=== PATIENT | male | born 1990 | race Caucasian/White ===

== ENCOUNTER 2023-06-01 02:52 | Emergency (ER) | payer BC, SELFPAY ==
--- OUTSIDE RECORDS SUMMARY | 2023-06-01 02:55 | XMS REPORT | Continuity of Care Document ---
Author Name Unknown Address [address] [facility] [address] [id number] [facility] thconnect Address [address] [facility]. [address] [place] [address] Care Team Providers Care Drum Sealer Name Role Phone JENNIFER LARKIN Attending Clinician Unavailab WINSOME Zhao Attending Clinician Unavailable JUAN ALFONSO Attending Clinician Unavailable Payers Payer Name Policy Type Policy Number Effective Date Expirati on Date Source [facility] 2 [id number] 2023 00:00:00 Problems Condition Name Condition Details Condition Category Status Onset Date Resolution Date Last Treatment Date Treating Clinician Comments Source Acute pharyngiti s due to other specified organisms Acute pharyngiti s due to other specified organisms Disease Active 2022-06 00:00: 00 Faith Oleary l Hypertensi on Hypertensi on Disease Active 2022-06 00:00: 00 Faith Morelos Externjuan robbins Allergies, Adverse Reactions, Alerts Allergy Name Allergy Type Status Severity Reaction(s) Onset Date Inactive Date Treating Clinician Comments Source Cefpodox kailee Propensi ty to adverse reaction s Active Other 2022-06 00:00: 00 Night terrors Faith Morelos Externa itzel Social History Social Habit Start Date Stop Date Quantity Comments Source Sexual orientation Jorge Bañuelos - External History of tobacco use Cigarette Smoker Faith lockett - External History of Social function 2023-04-09 00:00:00 2023-04-09 00:00:00 Faith Bañuelos - External Education 2023-04-09 00:00:00 2023-04-09 00:00:00 16 Faith Pickardcathryn - External Alcohol Comment 2023-04-09 00:00:00 2023-04-09 00:00:00 rarely Faith Bañuelos - External Cigarettes smoked current (pack per day) - Reported 2023-04-09 00:00:00 2023-04-09 00:00:00 Faith Bañuelos - External Cigarette pack-years 2023-04-09 00:00:00 2023-04-09 00:00:00 Faith Bañuelos - External Tobacco use and exposure 2023-04-09 00:00:00 2023-04-09 00:00:00 Smokeless tobacco non-user Faith Bañuelos - External Alcohol intake 2023-04-09 00:00:00 2023-04-09 00:00:00 Current drinker of alcohol (finding) Faith Bañuelos - External Sex Ass[birth year] At 1990 00:00:00 1990 00[birth year]:00 Faith manjeet - External Smoking Status Start Date Stop Date Source Ex-smoker 2023-04-09 00:00:00 2023-04-09 00:00:00 Jorge mcgovern Edda - External Medications Ordered Medication Name Filled Medication Name Start Date Stop Date Current Medication? Ordering Clinician Indication Dosage Frequency Signature (SIG) Comments Components Source Azithromyci n 250 MG oral Tablet 2022-06 00:00: 00 04-15 04:59 :00 Yes [id number] Take 2 tablets by mouth on day 1 then 1 tablet by mouth daily for 4 days thereafter .. Faith Bañuelos - Externa l Lisinopril 5 MG oral Tablet 2022-06 00:00: 00 Yes 5mg 1 tablet (5 mg total) every 24 hours. Faith Bañuelos - Externa l Vital Signs Vital Name Observation Time Observation Value Comments S ource Systolic blood pressure 2023-04-09 21:37:00 120 mm[Hg] Faith Swanson ld - External Diastolic blood pressure 2023-04-09 21:37:00 80 mm[Hg] Faith Swanson ld - External Heart rate 2023-04-09 21:23:00 86 /min Flor Bañuelos - External Body temperature 2023-04-09 21:23:00 36.28 Lizbeth Faith Semanjeet - External Respiratory rate 2023-04-09 21:23:00 18 /min Faith Bañuelos - External Body height 2023-04-09 21:23:00 175.3 cm Becca barnes Sejajacathryn - External Body weight 2023-04-09 21:23:00 86.365 kg Becca barnes Sejajacathryn - External BMI 2023-04-09 21:23:00 28.12 kg/m2 Becca Bañuelos - External Oxygen saturation in Arterial blood by Pulse oximetry 2023-04-09 21:23:00 98 /min Faith Swanson ld - External Encounters Start Date/Time End Date/Time Encounter Type Admission Type Attending [facility] Care Department Encounter ID Source 2023-06-03 15:00:00 2023-06-03 15:00:00 Outpatient JENNIFER LARKIN [id number] Faith Bañuelos 2023-06-01 14:30:00 2023-06-01 14:30:00 Outpatient WINSOME FLORES [id number] Faith Bañuelos 2023-04-19 00:00:00 2023-04-19 00:00:00 Outpatient JUAN ALFONSO [id number] Faith Bañuelos 2023-04-09 16:45:00 2023-04-09 16:45:00 Outpatient JUAN ALFONSO [id number] Faith Bañuelos
[2023-06-01 03:34] LABS: Protime INR 1.12
[2023-06-01 03:36] LABS: Absolute Lymphocytes (CBC) 2.8 K/uL (0.7-4.9); Hematocrit 40.9 % (39.6-49.0); Lymphocytes % 30.2 % (15.3-44.8); MCV 89.3 fL (80-100); MPV 7.5 fL (7.6-11.3); Platelets 484 thou/uL (152-406); RBC Red Blood Cell Count 4.58 M/uL (4.33-5.43)
[2023-06-01] MEDS ORDERED: NA CHLORIDE 0.9% 2,000 ML ONE (03:38)
[2023-06-01] MEDS ORDERED: ONDANSETRON 4 MG/2 ML VIAL ONE (03:38)
[2023-06-01] MEDS ORDERED: LORazepam 2 MG/ML VIAL ONE (03:38)
[2023-06-01] MEDS ORDERED: ASPIRIN EC 81 MG TAB PO ONE (03:38)
[2023-06-01 03:55] LABS: Albumin 4.2 g/dL (3.4-5.0); Bilirubin Direct 0.1 mg/dL (0-0.2); Bilirubin Indirect, Calculated 0.5 mg/dL (0.2-0.8); Bilirubin Total 0.6 mg/dL (0.2-1.0); Potassium 4.3 mEq/L (3.5-5.1); Protein, Total 7.9 g/dL (6.4-8.2); Troponin High Sensitivity 4.3 pg/mL (<58.9)
[2023-06-01 04:23] LABS: Barbiturates NEGATIVE (NEGATIVE); Benzodiazepines NEGATIVE (NEGATIVE); Cocaine NEGATIVE (NEGATIVE); METHAMPHETAM POSITIVE (NEGATIVE); Methadone NEGATIVE (NEGATIVE); Opiates NEGATIVE (NEGATIVE); Phencyclidine NEGATIVE (NEGATIVE); THC Cannibis POSITIVE (NEGATIVE)
--- NOTE | 2023-06-01 06:26 | ER ---
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 I took 300mg of Adderall throughout the day. I was not trying to hurt myself, I just wanted it to wake up and feel good. Coronavirus screen: At this time, the client does not indicate any symptoms associated with coronavirus-19. Ebola Screen: No symptoms or risks identified at this time. Initial Sepsis Screen: Does the patient meet any 2 criteria? No. Patient's initial sepsis screen is negative. Does the patient have a suspected source of infection? No. Patient's initial sepsis screen is negative. Risk Assessment: Do you want to hurt yourself or someone else? Patient reports no desire to harm self or others. Onset of symptoms was June 01, 2023. Transition of care: patient was not received from another setting of care. 03:10 Method Of Arrival: Ambulatory jb4 03:10 Acuity: SANJIV 3 jb4 Triage Assessment: 06:36 Pain: Also complains of no other associated symptoms. tm6 Historical: - Allergies: 03:13 No Known Allergies; jb4 - Home Meds: 03:13 Lisinopril Oral [Active]; Propranolol Oral [Active]; jb4 - PMHx: 03:13 HTN; jb4 - PSHx: 03:13 None; jb4 - Immunization history:: Adult Immunizations up to date. - Social history:: Smoking status: Reported history of juuling and/or vaping. Patient uses street drugs, Adderall. - Family history:: not pertinent. Screenin:25 [facility] ED Fall Risk Assessment (Adult) History of falling in the last 3 months, tm6 including since admission No falls in past 3 months (0 pts). Abuse screen: Denies threats or abuse. Denies injuries from another. Nutritional screening: No deficits noted. Tuberculosis screening: No symptoms or risk factors identified. Assessment: 03:25 General: Appears in no apparent distress. Behavior is calm, cooperative. Pain: Denies tm6 pain. Neuro: Reports dizziness, since 30 min ago. Cardiovascular: Reports palpitations, Capillary refill < 3 seconds Patient's skin is warm and dry. Respiratory: Airway is patent Respiratory effort is even, unlabored, Respiratory pattern is regular, symmetrical. GI: Abdomen is flat, non-distended. : No signs and/or symptoms were reported regarding the genitourinary system. EENT: No signs and/or symptoms were reported regarding the EENT system. Derm: No signs and/or symptoms reported regarding the dermatologic system. Musculoskeletal: No signs and/or symptoms reported regarding the musculoskeletal system. 03:25 Neuro: Reports blurred vision since 30 min ago. tm6 04:44 Reassessment: Patient appears in no apparent distress at this time. No changes from tm6 previously documented assessment. Patient and/or family updated on plan of care and expected duration. Pain level reassessed. Patient is alert, oriented x 3, equal unlabored respirations, skin warm/dry/pink. 05:37 Reassessment: Patient appears in no apparent distress at this time. Patient and/or tm6 family updated on plan of care and expected duration. Pain level reassessed. Patient is alert, oriented x 3, equal unlabored respirations, skin warm/dry/pink. Patient states symptoms have improved. patient states symptoms slightly improved. Vital Signs: 03:10 BP 151 / 79; Pulse 62; Resp 16; Temp 98; Pulse Ox 100% on R/A; Weight 86.18 kg (R); jb4 Height 5 ft. 9 in. (R); Pain 0/10; 03:25 BP 151 / 79; Pulse 68; Resp 18; Pulse Ox 100% on R/A; tm6 04:44 BP 111 / 95; Pulse 83; Resp 24; Pulse Ox 100% ; Pain 0/10; tm6 05:36 BP 114 / 66; Pulse 88; Resp 14; Pulse Ox 100% on R/A; Pain 0/10; tm6 03:10 Body Mass Index 28.06 (86.18 kg, 175.26 cm) jb4 03:10 Pain Scale: Adult jb4 04:44 Pain Scale: Adult tm6 05:36 Pain Scale: Adult tm6 ED Course: 02:54 Patient arrived in ED. jj6 02:56 Kris Arvizu MD is Attending Physician. sp4 03:12 Jose Duffy, RN is Primary Nurse. tm6 03:13 Triage completed. jb4 03:13 Arm band placed on right wrist. jb4 03:25 Patient has correct armband on for positive identification. Bed in low position. Call tm6 light in reach. Side rails up X 1. Provided Education on: VS monitoring and plan of care. Door closed. Noise minimized. 03:25 Inserted saline lock: 20 gauge in left antecubital area, using aseptic technique. tm6 04:17 XRAY Chest (1 view) In Process Unspecified. EDMS 06:36 No provider procedures requiring assistance completed. IV discontinued, intact, tm6 bleeding controlled, No redness/swelling at site. Pressure dressing applied. Administered Medications: 03:38 Drug: Ativan IVP 2 mg IVP once Route: IVP; Site: left antecubital; tm6 04:30 Follow up: Response: No adverse reaction; Marked relief of symptoms pf1 03:38 Not Given (Patient Refused): ondansetron 4 mg IVP once; over 2 minutes tm6 03:38 Drug: NS 0.9% IV 1000 ml IV at 1 bolus Per protocol; 1000 mL bolus Route: IV; Rate: 1 tm6 bolus; Site: left antecubital; 05:20 Follow up: Response: Marked relief of symptoms; IV Status: Completed infusion; IV pf1 Intake: 1000ml 03:39 Drug: Aspirin PO Chewable Tablet 324 mg PO once; 81 mg tablets x 4 Route: PO; tm6 05:20 Drug: NS 0.9% IV 1000 ml IV at 125 ml/hr continuous Route: IV; Rate: 125 ml/hr; Site: pf1 left antecubital; Medication: 03:25 VIS not applicable for this client. tm6 Intake: 05:20 IV: 1000ml; Total: 1000ml. pf1 Outcome: 06:26 Discharge ordered by . sp4 06:36 Discharged to home ambulatory, tm6 06:36 Condition: stable 06:36 Condition: stable 06:36 Discharge instructions given to patient, Instructed on discharge instructions, stop taking meth Demonstrated understanding of instructions, 06:37 Patient left the ED. tm6 Signatures: Dispatcher [employer] EDCA Thierno Douglas RN RN jb4 Arlette Jones6 Debi Spence RN RN pf1 Kris Arvizu MD MD sp4 Jose Duffy RN RN tm6 Corrections: (The following items were deleted from the chart) 03:41 03:40 Neuro: Reports blurred vision since 30 min ago tm6 tm6
--- NOTE | 2023-06-01 06:26 | EDPHYS ---
Physician Documentation [facility] Name: Cuca Storey Age: 32 yrs Sex: Male : 1990 Arrival Date: 06/01/2023 Time: 02:52 Bed 16 Private MD: ED Physician Kris Arvizu HPI: 06/01 02:57 This 32 yrs old Male presents to ER via Unassigned with complaints of High sp4 Blood Pressure, Blurred Vision, Dizziness, Headache, BP WAS 180/100 AT HOME APPROX 30 MIN AGO. 03:05 32-year-old male presents with acute Adderall ingestion. Patient states that throughout sp4 yesterday he took approximately 300 mg Adderall. Patient states he takes 30 mg Adderall tablets and yesterday he took estimated 10 tablets. Patient did not purposefully overdose but he took it to get some energy to carry through the day. Denies history of hypertension he takes lisinopril 10 mg p.o. daily and propranolol 80 mg p.o. daily. . Historical: - Allergies: 03:13 No Known Allergies; jb4 - Home Meds: 03:13 Lisinopril Oral [Active]; Propranolol Oral [Active]; jb4 - PMHx: 03:13 HTN; jb4 - PSHx: 03:13 None; jb4 - Immunization history:: Adult Immunizations up to date. - Social history:: Smoking status: Reported history of juuling and/or vaping. Patient uses street drugs, Adderall. - Family history:: not pertinent. ROS: 03:05 Constitutional: Negative for fever, chills, and weight loss, positive for chest sp4 tightness, positive anxiety, positive elevated blood pressure, positive feeling unwell Eyes: Negative for injury, pain, redness, and discharge, ENT: Negative for injury, pain, and discharge, Neck: Negative for injury, pain, and swelling, Cardiovascular: Positive for chest pain Respiratory: Negative for shortness of breath, cough, wheezing, and pleuritic chest pain, Abdomen/GI: Negative for abdominal pain, nausea, vomiting, diarrhea, and constipation, Back: Negative for injury and pain, 03:05 All other systems are negative, Exam: 03:05 Constitutional: This is a well developed, well nourished patient who is awake, alert, sp4 anxious appearing male, tachycardic Head/Face: Normocephalic, atraumatic. Eyes: Pupils equal round and reactive to light, extra-ocular motions intact. Lids and lashes normal. Conjunctiva and sclera are not injected. Cornea within normal limits. Periorbital areas with no swelling, redness, or edema. ENT: Nares patent. No nasal discharge, no septal abnormalities noted. Tympanic membranes are normal and external auditory canals are clear. Oropharynx with no redness, swelling, or masses, exudates, or evidence of obstruction, uvula midline. Mucous membranes moist. Neck: Trachea midline, no thyromegaly or masses palpated, and no cervical lymphadenopathy. Supple, full range of motion without nuchal rigidity, or vertebral point tenderness. Chest/axilla: Normal chest wall appearance and motion. Nontender with no deformity. No lesions are appreciated. Cardiovascular: Positive regular tachycardia. No gallops, murmurs, or rubs. Normal PMI, no JVD. No pulse deficits. Respiratory: Lungs have equal breath sounds bilaterally, clear to auscultation and percussion. No rales, rhonchi or wheezes noted. No increased work of breathing, no retractions or nasal flaring. Abdomen/GI: Soft, non-tender, with normal bowel sounds. No distension or tympany. No guarding or rebound. No evidence of tenderness throughout. Back: No spinal tenderness. No costovertebral tenderness. Skin: Warm, dry with normal turgor. Normal color with no rashes, no lesions, and no evidence of cellulitis. MS/ Extremity: Pulses equal, no cyanosis. Neurovascular intact. Full, normal range of motion. Neuro: Awake and alert, GCS 15, oriented to person, place, time, and situation. Cranial nerves II-XII grossly intact. Motor strength 5/5 in all extremities. Sensory grossly intact. Psych: Positive anxiety and tachycardia, positive for restlessness 06:27 ECG was reviewed by the Attending Physician. EKG time 0 324, normal sinus rhythm with sp4 first-degree AV block at a rate of 60 Vital Signs: 03:10 BP 151 / 79; Pulse 62; Resp 16; Temp 98; Pulse Ox 100% on R/A; Weight 86.18 kg (R); jb4 Height 5 ft. 9 in. (R); Pain 0/10; 03:25 BP 151 / 79; Pulse 68; Resp 18; Pulse Ox 100% on R/A; tm6 04:44 BP 111 / 95; Pulse 83; Resp 24; Pulse Ox 100% ; Pain 0/10; tm6 05:36 BP 114 / 66; Pulse 88; Resp 14; Pulse Ox 100% on R/A; Pain 0/10; tm6 03:10 Body Mass Index 28.06 (86.18 kg, 175.26 cm) jb4 03:10 Pain Scale: Adult jb4 04:44 Pain Scale: Adult tm6 05:36 Pain Scale: Adult tm6 MDM: 03:52 Patient medically screened. sp4 06:25 Differential diagnosis: hypertensive crisis, Malignant HTN, CVA. Data reviewed: EKG, sp4 radiologic studies, CLINICAL HISTORY: The patient is 32 years old and is Male; CHEST PAIN TECHNIQUE: Single view of the chest. COMPARISON: No relevant prior studies available. FINDINGS: Lungs: No pulmonary vascular congestion or consolidation. Pleural space: Unremarkable. No pneumothorax. Heart: Unremarkable. No cardiomegaly. Mediastinum: Unremarkable. Normal mediastinal contour. Bones/joints: No acute fracture visualized. Upper abdomen: No free air in the visualized upper abdomen. IMPRESSION: No acute cardiopulmonary process identified. . ED course: Patient is paranoid from methamphetamine abuse. Patient apparently used methamphetamines and not the Adderall.. Patient was advised to stay away from recreational substance. . 06/01 03:04 Order name: Basic Metabolic Panel; Complete Time: 06:21 4 06/01 03:04 Order name: CBC with Diff; Complete Time: 06:21 [facility] 06/01 03:04 Order name: LFT's; Complete Time: 06:21 4 06/01 03:04 Order name: Magnesium; Complete Time: 06:21 4 06/01 03:04 Order name: PT-INR; Complete Time: 06:21 4 06/01 03:04 Order name: Troponin HS; Complete Time: 06:21 4 06/01 03:05 Order name: Urine Drug Screen; Complete Time: 06:21 4 06/01 03:04 Order name: XRAY Chest (1 view) [facility] 06/01 03:04 Order name: EKG; Complete Time: 03:04 [facility] 06/01 03:04 Order name: Cardiac monitoring; Complete Time: 03:38 sp4 06/01 03:04 Order name: EKG - Nurse/Tech; Complete Time: 03:27 sp4 06/01 03:04 Order name: IV Saline Lock; Complete Time: 03:24 sp4 06/01 03:04 Order name: Labs collected and sent; Complete Time: 03:24 sp4 06/01 03:04 Order name: O2 Per Protocol; Complete Time: 03:24 sp4 06/01 03:04 Order name: O2 Sat Monitoring; Complete Time: 03:24 sp4 EC:27 Rate is 60 beats/min. Rhythm is regular, Normal Sinus Rhythm. QRS [place] is Normal. NC sp4 interval is normal. QRS interval is normal. QT interval is normal. No Q waves. T waves are Normal. No ST changes noted. Clinical impression: Normal ECG. Interpreted by me. Reviewed by me. Administered Medications: 03:38 Drug: Ativan IVP 2 mg IVP once Route: IVP; Site: left antecubital; tm6 04:30 Follow up: Response: No adverse reaction; Marked relief of symptoms pf1 03:38 Not Given (Patient Refused): ondansetron 4 mg IVP once; over 2 minutes tm6 03:38 Drug: NS 0.9% IV 1000 ml IV at 1 bolus Per protocol; 1000 mL bolus Route: IV; Rate: 1 tm6 bolus; Site: left antecubital; 05:20 Follow up: Response: Marked relief of symptoms; IV Status: Completed infusion; IV pf1 Intake: 1000ml 03:39 Drug: Aspirin PO Chewable Tablet 324 mg PO once; 81 mg tablets x 4 Route: PO; tm6 05:20 Drug: NS 0.9% IV 1000 ml IV at 125 ml/hr continuous Route: IV; Rate: 125 ml/hr; Site: pf1 left antecubital; Disposition Summary: 06/01/23 06:26 Discharge Ordered Notes: Location: Home sp4 Problem: new sp4 Symptoms: have improved sp4 Condition: Stable sp4 Diagnosis - Stimulant abuse, methamphetamine abuse sp4 Followup: sp4 - With: Private Physician - When: 7 - 10 days - Reason: Recheck today's complaints Discharge Instructions: - Discharge Summary Sheet sp4 - Methamphetamines Use Disorder sp4 Forms: - Patient Portal Instructions sp4 Signatures: Dispatcher [employer] EDThierno Jansen RN RN jb4 Debi Spence RN RN pf1 Kris Arvizu MD MD sp4 Jose Duffy RN RN tm6 Corrections: (The following items were deleted from the chart) 03:07 03:05 Constitutional: Negative for fever, chills, and weight loss, positive for chest sp4 tightness, positive anxiety, positive elevated blood pressure, positive feeling unwell Eyes: Negative for injury, pain, redness, and discharge, ENT: Negative for injury, pain, and discharge, Neck: Negative for injury, pain, and swelling, Cardiovascular: Negative for chest pain, palpitations, and edema, Respiratory: Negative for shortness of breath, cough, wheezing, and pleuritic chest pain, Abdomen/GI: Negative for abdominal pain, nausea, vomiting, diarrhea, and constipation, Back: Negative for injury and pain, sp4
[2023-06-01 06:46] VITALS: TEMP 98; O2SAT 100
[2023-06-01 06:50] VITALS: BP 114/66
--- NOTE | 2023-06-01 13:40 | EKG ---
Test Date: 2023-06-01 Test Time: 03:24:43 Cell Operation Supervisor: ELENA MEASUREMENT RESULTS: Intervals: Rate: 60 MN: 220 QRSD: 102 QT: 390 QTc: 390 [place]: P: 39 MN: 220 QRS: 78 T: 5 INTERPRETIVE STATEMENTS: Sinus rhythm with 1st degree AV block Otherwise normal ECG Compared to ECG 06/26/1998 19:01:00 No significant changes Electronically Signed On 06-01-23 13:38:39 ENRICHMENT DIRECTOR by Nelson Luther
--- NOTE | 2023-06-01 22:01 | RAD REPORT ---
EXAM DESCRIPTION: XR Chest, 1 View CLINICAL HISTORY: The patient is 32 years old and is Male; CHEST PAIN TECHNIQUE: Single view of the chest. COMPARISON: No relevant prior studies available. FINDINGS: Lungs: No pulmonary vascular congestion or consolidation. Pleural space: Unremarkable. No pneumothorax. Heart: Unremarkable. No cardiomegaly. Mediastinum: Unremarkable. Normal mediastinal contour. Bones/joints: No acute fracture visualized. Upper abdomen: No free air in the visualized upper abdomen. IMPRESSION: No acute cardiopulmonary process identified. Electronically signed by: Raisa Stack MD 06/01/2023 04:45 AM COIL MAKER Due to temporary technical issues with the PACS/Fluency reporting system, reports are being signed by the in house radiologists without review as a courtesy to insure prompt reporting. The interpreting radiologist is fully responsible for the content of the report.
== END 2023-06-01 06:37 | disposition home or self-care (01) ==
LOC: ER 02:52
DX: F15.10 Other stimulant abuse, uncomplicated (principal)
CPT/HCPCS: 36415; 71045; 80048; 80076; 80307; 83735; 84484; 85025; 85610; 93005; 96361; 96374; 99284; J2405; J7030